=== PATIENT | male | born 1995 | race Caucasian/White ===

== ENCOUNTER 2017-09-26 22:43 | Inpatient (IN) | payer OTHER ==
[~2017-09-26] VITALS: Ht 172.7 cm; Wt 66.7 kg
[2017-09-26] MEDS ORDERED: IOHEXOL 350 MG/ML 10 ML VIAL (for RAD DIAG) IVCONTRAST ONE (22:44)
[2017-09-26 22:45] VITALS: O2SAT 100
[2017-09-26] MEDS ORDERED: MIDAZOLAM HCL 5 MG/ML VIAL (1 ML) ONE (22:53)
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
[2017-09-26 23:29] LABS: AUTOMATED NEUTROPHIL # 3.9 TH/MM3 (1.8-7.7); BASOPHIL # 0.1 TH/MM3 (0-0.2); EOSINOPHIL # 0.9 TH/MM3 (0-0.4); EOSINOPHIL % 9.5 % (0.0-4.0); HEMATOCRIT 37.6 % (39.0-51.0); LYMPH % 40.3 % (9.0-44.0); LYMPHOCYTE # 3.8 TH/MM3 (1.0-4.8); MEAN CORPUSCULAR HEMOGLOBIN 30.3 PG (27.0-34.0); MEAN CORPUSCULAR HGB CONC 34.4 % (32.0-36.0); MEAN PLATELET VOLUME 8.9 FL (7.0-11.0); MONO % 7.7 % (0.0-8.0); MONOCYTE # 0.7 TH/MM3 (0-0.9); NEUT % 41.5 % (16.0-70.0); PLATELET COUNT 289 TH/MM3 (150-450); RED BLOOD COUNT 4.28 MIL/MM3 (4.50-5.90); RED CELL DISTRIBUTION WIDTH 13.5 % (11.6-17.2); WHITE BLOOD COUNT 9.3 TH/MM3 (4.0-11.0)
[2017-09-26 23:30] VITALS: BP 125/61; PULSE 108; RESP 28; O2SAT 100
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
[2017-09-26 23:45] VITALS: BP 120/60; PULSE 102; RESP 27; O2SAT 100
[2017-09-26] MEDS ORDERED: ENALAPRILAT 1.25 MG/ML VIAL IV PUSH PRN (23:45)
[2017-09-26] MEDS ORDERED: ONDANSETRON HCL 4 MG/2 ML VIAL IV PUSH PRN (23:45)
[2017-09-26] MEDS ORDERED: MORPHINE SULFATE 4 MG/ML INJ IV PRN (23:45)
[2017-09-26] MEDS ORDERED: SODIUM CHLORIDE 0.9% FLUSH 10 ML FLUSH IV FLUSH PRN (23:45)
[2017-09-26] MEDS ORDERED: MAGNESIUM HYDROXIDE SUSP 30 ML CUP PO PRN (23:45)
[2017-09-26 23:57] LABS: PROTHROMBIN TIME - PATIENT 10.3 SEC (9.8-11.6)
[2017-09-27] VITALS (15 sets, daily range): BP systolic 108–133; BP diastolic 55–70; PULSE 74–108; RESP 15–30; TEMP 98.2–99.5; O2SAT 96–100
[2017-09-27] MEDS ORDERED: PANTOPRAZOLE SODIUM 40 MG VIAL IVP SCH
[2017-09-27] MEDS: MORPHINE SULFATE 4 MG/ML INJ IV PRN ×6 (00:13→23:46)
[2017-09-27] MEDS: MORPHINE SULFATE 2 MG/ML INJ IV PRN ×2 (00:50→09:55)
--- NOTE | 2017-09-27 01:21 | PD ---
Physical Exam Date Seen by Provider: Sep 27, 2017 Time Seen by Provider: 01:15 Narrative Skin: Patient has 4 suturable lacerations. The first laceration involving the left shoulder. This measures 6 cm. Laceration goes into the subcutaneous tissues. He does have some minor involvement of the muscle area. The second laceration involves the right forearm. Laceration measures 3 cm. This is into subcutaneous tissues once a minor muscle injury. The third laceration involves the right flank. Laceration measures approximately 5 cm. Laceration goes into the subcutaneous tissues into the retroperitoneal space. The fourth laceration involves the left mid posterior thorax. This laceration measures 5 cm as well. Laceration goes into the subcutaneous tissue. Data Data Last Documented VS Vital Signs Date Time Temp Pulse Resp B/P (MAP) Pulse Ox O2 Delivery O2 Flow Rate FiO2 09/26/17 22:45 100 Non-Rebreather 15.00 100 Orders Orders Type And Screen (09/26/17 22:50) Midazolam Inj (Versed Inj) (09/26/17 22:53) I-Stat Profile (09/26/17 23:00) Complete Blood Count With Diff (09/26/17 23:00) Prothrombin Time / Inr (Pt) (09/26/17 23:00) Act Partial Throm Time (Ptt) (09/26/17 23:00) Red Blood Cells (Rbc) (09/26/17 23:00) Chest, Single Ap (09/26/17 23:00) Ct Abd/Pel W Iv Contrast(Rout) (09/26/17 23:00) Ct Thorax/ Chest W Iv Contrast (09/26/17 23:00) Iv Access Insert/Monitor (09/26/17 23:00) Ecg Monitoring (09/26/17 23:00) Oximetry (09/26/17 23:00) Oxygen Administration (09/26/17 23:00) Chest, Single Ap (09/26/17 ) Iohexol 350 Inj (Omnipaque 350 Inj) (09/26/17 22:44) Admit Order (Ed Use Only) (09/26/17 ) Sap Specialist / Telemetry JASON.Q8H (09/26/17 23:25) Vital Signs (Adult) Q4H (09/26/17 23:25) Diet Npo (09/27/17 Breakfast) Activity Bed Rest (09/26/17 23:25) Fresh Frozen Plasma (Ffp) (09/26/17 22:50) Labs Laboratory Tests Test 09/26/17 22:50 White Blood Count 9.3 TH/MM3 Red Blood Count 4.28 MIL/MM3 Hemoglobin 13.0 GM/DL Bedside Hemoglobin 12.6 G/DL Hematocrit 37.6 % Bedside Hematocrit 37.0 % Mean Corpuscular Volume 88.0 FL Mean Corpuscular Hemoglobin 30.3 PG Mean Corpuscular Hemoglobin Concent 34.4 % Red Cell Distribution Width 13.5 % Platelet Count 289 TH/MM3 Mean Platelet Volume 8.9 FL Neutrophils (%) (Auto) 41.5 % Lymphocytes (%) (Auto) 40.3 % Monocytes (%) (Auto) 7.7 % Eosinophils (%) (Auto) 9.5 % Basophils (%) (Auto) 1.0 % Neutrophils # (Auto) 3.9 TH/MM3 Lymphocytes # (Auto) 3.8 TH/MM3 Monocytes # (Auto) 0.7 TH/MM3 Eosinophils # (Auto) 0.9 TH/MM3 Basophils # (Auto) 0.1 TH/MM3 CBC Comment DIFF FINAL Differential Comment Prothrombin Time 10.3 SEC Prothromb Time International Ratio 1.0 RATIO Activated Partial Thromboplast Time 21.9 SEC Bedside Sodium 138 MMOL/L Bedside Potassium 3.8 MMOL/L Bedside Chloride 100 MMOL/L Bedside Blood Urea Nitrogen 15 MG/DL Bedside Creatinine 1.1 MG/DL Bedside Glucose 125 MG/DL [facility] Medical Record Reviewed: Yes Supervised Visit with DAVIS: Yes Interpretation(s) Last 24 hours Impressions Chest X-Ray 09/26/172299 Signed Impressions: Service Date/Time: Tuesday, September 26, 2017 22:44 - CONCLUSION: Mild right pneumothorax with a catheter over the right chest. Sami Bernal MD Chest CT 09/26/172299 Signed Impressions: Service Date/Time: Tuesday, September 26, 2017 23:05 - CONCLUSION: 1. Atelectasis or contusion at the posterior mid and lower right lung. 2. Right chest tube with a minimal residual pneumothorax. 3. Areas of air within the soft tissues over the left shoulder on anterior right chest, and posterior upper and mid back regions. Sami Bernal MD Abdomen/Pelvis CT 09/26/172299 Signed Impressions: Service Date/Time: Tuesday, September 26, 2017 23:05 - CONCLUSION: 1. Right renal laceration with surrounding hemorrhage. 2. Posterior hepatic laceration at the posterior segment of the right lobe. There is mild hemorrhage seen around the liver and extending to the right paracolic gutter region. 3. Right chest tube with a minimal residual pneumothorax on the right. 4. Consolidation/contusion or atelectasis at the posterior right lower lobe. Sami Bernal MD Chest X-Ray 09/26/17 0000 Signed Impressions: Service Date/Time: Tuesday, September 26, 2017 22:44 - CONCLUSION: Successful placement right chest tube. Sami Bernal MD Differential Diagnosis MDM: High Differential diagnoses: Fracture, sprain, strain, dislocation, contusion, neurovascular injury Narrative Course Patient's lacerations are closed with sutures and ramy. Procedures Procedure Narrative LACERATION LOCATION: Left shoulder LENGTH: 6 cm NUMBER OF STITCHES/RAMY: 12 REPAIR: The area of the laceration was prepped with Betadine and sterilely draped. The laceration was infiltrated with 1% lidocaine with epinephrine. The wound was copiously irrigated and explored without evidence of foreign body , tendon injury or neurovascular injury. The subcutaneous tissues were approximated using 4-0 Vicryl. The skin was closed using ramy. This was a intermediate 2 layer repair. A sterile dressing was applied. The patient was advised to keep the dressing clean and dry. Patient tolerated the procedure well. LACERATION LOCATION: Right forearm LENGTH: 3 cm NUMBER OF STITCHES/RAMY: 4 REPAIR: The area of the laceration was prepped with Betadine and sterilely draped. The laceration was infiltrated with 1% lidocaine with epinephrine. The wound was copiously irrigated and explored without evidence of foreign body , tendon injury or neurovascular injury. The skin was closed using ramy. This was a intermediate 2 layer repair. A sterile dressing was applied. The patient was advised to keep the dressing clean and dry. Patient tolerated the procedure well. LACERATION LOCATION: Left posterior thorax LENGTH: 5 cm NUMBER OF STITCHES/RAMY: 12 REPAIR: The area of the laceration was prepped with Betadine and sterilely draped. The laceration was infiltrated with 1% lidocaine with epinephrine. The wound was copiously irrigated and explored without evidence of foreign body , tendon injury or neurovascular injury. The subcutaneous tissues were approximated using 4-0 Vicryl. The skin was closed using ramy. This was a intermediate 2 layer repair. A sterile dressing was applied. The patient was advised to keep the dressing clean and dry. Patient tolerated the procedure well. LACERATION LOCATION: Right flank LENGTH: 5 cm NUMBER OF STITCHES/RAMY: 12 REPAIR: The area of the laceration was prepped with Betadine and sterilely draped. The laceration was infiltrated with 1% lidocaine with epinephrine. The wound was copiously irrigated and explored without evidence of foreign body , tendon injury or neurovascular injury. The subcutaneous tissues were approximated using 4-0 Vicryl. The skin was closed using ramy. This was a intermediate 2 layer repair. A sterile dressing was applied. The patient was advised to keep the dressing clean and dry. Patient tolerated the procedure well. Scripts No Active Prescriptions or Reported Meds Cody Millan Sep 27, 2017 01:21
[2017-09-27] MEDS: HYDROmorphone HCL PF 2 MG/ML VIAL IV PRN ×3 (01:47→11:00)
[2017-09-27] MEDS: SODIUM CHLOR 0.9% 1000 ML INJ 1,000 ML IV SCH ×3 (02:02→13:50)
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
[2017-09-27 06:26] LABS: AUTOMATED NEUTROPHIL # 9.4 TH/MM3 (1.8-7.7); BASOPHIL % 0.3 % (0.0-2.0); EOSINOPHIL % 0.3 % (0.0-4.0); HEMATOCRIT 34.8 % (39.0-51.0); HEMOGLOBIN 12.1 GM/DL (13.0-17.0); LYMPH % 12.4 % (9.0-44.0); LYMPHOCYTE # 1.5 TH/MM3 (1.0-4.8); MEAN CELL VOLUME 87.9 FL (80.0-100.0); MEAN CORPUSCULAR HEMOGLOBIN 30.5 PG (27.0-34.0); MEAN CORPUSCULAR HGB CONC 34.7 % (32.0-36.0); MEAN PLATELET VOLUME 8.3 FL (7.0-11.0); MONO % 8.6 % (0.0-8.0); NEUT % 78.4 % (16.0-70.0); PLATELET COUNT 213 TH/MM3 (150-450); RED BLOOD COUNT 3.95 MIL/MM3 (4.50-5.90); RED CELL DISTRIBUTION WIDTH 13.7 % (11.6-17.2)
[2017-09-27 07:01] LABS: ALBUMIN 3.2 GM/DL (3.4-5.0); AST (GOT) 46 U/L (15-37); BICARBONATE 26.2 MEQ/L (21.0-32.0); BLOOD UREA NITROGEN 13 MG/DL (7-18); CHLORIDE 105 MEQ/L (98-107); CREATININE 0.81 MG/DL (0.60-1.30); GLOMERULAR FILTRATION RATE 82 ML/MIN (>89); GLUCOSE,RANDOM 116 MG/DL (74-106); SODIUM (NA) 138 MEQ/L (136-145)
[2017-09-27 07:03] LABS: ALT (GPT) 103 U/L (12-78)
[2017-09-27 07:05] LABS: ALKALINE PHOSPHATASE 67 U/L (45-117); TOTAL BILIRUBIN ADULT 0.6 MG/DL (0.2-1.0); TOTAL PROTEIN 6.5 GM/DL (6.4-8.2)
[2017-09-27] MEDS ORDERED: DOCUSATE SODIUM 100 MG CAP PO SCH (09:00)
[2017-09-27] MEDS: ceFAZolin 2 GM PREMIX 50 ML IV SCH ×2 (11:00→18:10)
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
[2017-09-27] MEDS ORDERED: oxyCODONE/ACETAMINOPHEN 5 MG/325 MG TAB PO PRN (12:45)
[2017-09-27] MEDS ORDERED: LACTULOSE SYRUP 20 GM/30 ML CUP PO PRN (12:45)
[2017-09-27] MEDS: oxyCODONE/ACETAMINOPHEN 10 MG/325 MG TAB PO PRN ×3 (13:53→22:12)
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
[2017-09-27] MEDS: DOCUSATE SODIUM 50 MG/SENNA 8.6 MG TAB PO SCH (19:34)
[2017-09-27 21:21] LABS: HEMATOCRIT 32.7 % (39.0-51.0); HEMOGLOBIN 11.2 GM/DL (13.0-17.0)
[2017-09-28] MEDS: SODIUM CHLOR 0.9% 1000 ML INJ 1,000 ML IV SCH ×2 (02:20→14:50)
[2017-09-28] MEDS: ceFAZolin 2 GM PREMIX 50 ML IV SCH ×3 (03:24→17:34)
[2017-09-28 03:25] VITALS: BP 122/69; PULSE 86; RESP 18; TEMP 98.8; O2SAT 99
[2017-09-28] MEDS: oxyCODONE/ACETAMINOPHEN 10 MG/325 MG TAB PO PRN ×3 (03:25→20:05)
[2017-09-28] MEDS: MORPHINE SULFATE 4 MG/ML INJ IV PRN ×5 (04:27→21:49)
[2017-09-28 06:12] LABS: AUTOMATED NEUTROPHIL # 4.9 TH/MM3 (1.8-7.7); BASOPHIL % 0.4 % (0.0-2.0); EOSINOPHIL # 0.5 TH/MM3 (0-0.4); HEMATOCRIT 35.1 % (39.0-51.0); HEMOGLOBIN 11.9 GM/DL (13.0-17.0); LYMPHOCYTE # 1.8 TH/MM3 (1.0-4.8); MEAN CELL VOLUME 89.3 FL (80.0-100.0); MEAN CORPUSCULAR HEMOGLOBIN 30.2 PG (27.0-34.0); MEAN CORPUSCULAR HGB CONC 33.8 % (32.0-36.0); MEAN PLATELET VOLUME 8.4 FL (7.0-11.0); MONO % 11.8 % (0.0-8.0); NEUT % 59.8 % (16.0-70.0); PLATELET COUNT 190 TH/MM3 (150-450); RED BLOOD COUNT 3.94 MIL/MM3 (4.50-5.90); RED CELL DISTRIBUTION WIDTH 13.6 % (11.6-17.2); WHITE BLOOD COUNT 8.3 TH/MM3 (4.0-11.0)
[2017-09-28 06:37] LABS: BICARBONATE 28.6 MEQ/L (21.0-32.0); CALCIUM 7.6 MG/DL (8.5-10.1); CREATININE 0.71 MG/DL (0.60-1.30)
[2017-09-28 08:00] VITALS: BP 115/64; PULSE 76; RESP 17; TEMP 98.4; O2SAT 100
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
--- NOTE | 2017-09-28 09:00 | RADRPT ---
EXAM DATE/TIME: 09/28/2017 08:10 [facility] COMPARISON: CHEST SINGLE AP, September 27, 2017, 4:37. INDICATIONS : Evaluate for pneumothorax. MEDICAL HISTORY : None. SURGICAL HISTORY : None. ENCOUNTER: Subsequent ACUITY: 3 days PAIN SCORE: 8/10 LOCATION: Right chest FINDINGS: A single view of the chest demonstrates the lungs to be symmetrically aerated without evidence of mas s, infiltrate or effusion. No pneumothorax. Right thoracostomy tube. The cardiomediastinal contours a re unremarkable. Osseous structures are intact. CONCLUSION: No pneumothorax. Rajeev Ornelas Jr., MD on September 28, 2017 at 8:55 Board Certified Radiologist. This report was verified electronically.
[2017-09-28] MEDS ORDERED: IOHEXOL 350 MG/ML 10 ML VIAL (for RAD DIAG) IVCONTRAST ONE (09:29)
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
[2017-09-28] MEDS: DOCUSATE SODIUM 50 MG/SENNA 8.6 MG TAB PO SCH ×2 (09:56→20:06)
[2017-09-28 12:00] VITALS: BP 135/75; PULSE 83; RESP 17; TEMP 99; O2SAT 96
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
[2017-09-28 13:21] VITALS: O2SAT 97
[2017-09-28 16:00] VITALS: BP 116/61; PULSE 76; RESP 17; TEMP 98.4; O2SAT 97
[2017-09-28 20:50] VITALS: BP 123/60; PULSE 90; RESP 17; TEMP 99.9; O2SAT 95
[2017-09-29 01:19] VITALS: BP 138/70; PULSE 81; RESP 17; TEMP 99.2; O2SAT 98
[2017-09-29] MEDS: MORPHINE SULFATE 4 MG/ML INJ IV PRN ×2 (01:51→06:22)
[2017-09-29] MEDS: ceFAZolin 2 GM PREMIX 50 ML IV SCH (03:04)
[2017-09-29] MEDS: oxyCODONE/ACETAMINOPHEN 10 MG/325 MG TAB PO PRN ×2 (03:07→09:34)
[2017-09-29] MEDS: SODIUM CHLOR 0.9% 1000 ML INJ 1,000 ML IV SCH (03:20)
[2017-09-29 04:30] LABS: HEMATOCRIT 36.1 % (39.0-51.0); HEMOGLOBIN 12.4 GM/DL (13.0-17.0)
[2017-09-29 04:55] VITALS: BP 117/70; PULSE 83; RESP 16; TEMP 98.8; O2SAT 98
[2017-09-29 05:03] LABS: ALBUMIN 3.1 GM/DL (3.4-5.0); ALT (GPT) 70 U/L (12-78); AST (GOT) 27 U/L (15-37); BLOOD UREA NITROGEN 10 MG/DL (7-18); CALCIUM 8.1 MG/DL (8.5-10.1); CHLORIDE 101 MEQ/L (98-107); CREATININE 0.76 MG/DL (0.60-1.30); GLOMERULAR FILTRATION RATE 128 ML/MIN (>89); GLUCOSE,RANDOM 112 MG/DL (74-106); SODIUM (NA) 137 MEQ/L (136-145)
[2017-09-29 05:05] LABS: ALKALINE PHOSPHATASE 66 U/L (45-117); TOTAL BILIRUBIN ADULT 0.4 MG/DL (0.2-1.0); TOTAL PROTEIN 6.8 GM/DL (6.4-8.2)
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
[2017-09-29 07:48] VITALS: BP 112/63; PULSE 72; RESP 18; TEMP 97.6; O2SAT 97
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
[2017-09-29] MEDS: DOCUSATE SODIUM 50 MG/SENNA 8.6 MG TAB PO SCH (09:33)
[2017-09-29] MEDS ORDERED: OXYC1TAB63 PO (10:34)
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
== END 2017-09-29 11:46 | disposition home or self-care (01) | DRG 964 ==
LOC: NEPI 22:43 → EDBD 23:27 → NEDA 23:27 → N03B 09-27 01:24 → N06A 09-27 16:36
PROVIDERS: ADMIT Surgery; ATTEND Surgery
PROC: 0W9930Z Drainage of Right Pleural Cavity with Drainage Device, Percutaneous Approach (ICD-10-PCS; principal; 2017-09-27)
PROC: 0JQ63ZZ Repair Chest Subcutaneous Tissue and Fascia, Percutaneous Approach (ICD-10-PCS; 2017-09-27)
PROC: 0JQF3ZZ Repair Left Upper Arm Subcutaneous Tissue and Fascia, Percutaneous Approach (ICD-10-PCS; 2017-09-27)
PROC: 0JQ83ZZ Repair Abdomen Subcutaneous Tissue and Fascia, Percutaneous Approach (ICD-10-PCS; 2017-09-27)
PROC: 0HQDXZZ Repair Right Lower Arm Skin, External Approach (ICD-10-PCS; 2017-09-27)
DX: S27.2XXA Traumatic hemopneumothorax, initial encounter (principal); S36.113A Laceration of liver, unspecified degree, initial encounter; S21.111A Laceration without foreign body of right front wall of thorax without penetration into thoracic cavity, initial encounter; S27.321A Contusion of lung, unilateral, initial encounter; S37.041A Minor laceration of right kidney, initial encounter; S21.212A Laceration without foreign body of left back wall of thorax without penetration into thoracic cavity, initial encounter; S41.012A Laceration without foreign body of left shoulder, initial encounter; S51.811A Laceration without foreign body of right forearm, initial encounter; F17.200 Nicotine dependence, unspecified, uncomplicated; X99.1XXA Assault by knife, initial encounter
CPT/HCPCS: 12035; 32551; 36430; 51702; 71045; 71260; 74160; 74177; 80048; 80053; 85014; 85018; 85025; 85610; 85730; 86850; 86900; 86901; 86920; 86927; 87641; 90471; 94150; 96374; 99291; C9113; G0390; J0690; J1170; J2250; J2270; J7030; P9016; P9017; Q9967